=== PATIENT | male | born 1990 | race Two or more races ===

== ENCOUNTER 2019-08-03 02:42 | Emergency (ER) | payer SELFPAY ==
[~2019-08-03] VITALS: Ht 165.1 cm; Wt 63.5 kg
--- NOTE | 2019-08-03 03:00 | NUR ---
[facility] PT STATES HE COULDNT GET METH AND FOUND RITALIN AND CLONIDINE AND TOOK 80 PILLS OF EACH. DENIES SI. VSS.
--- NOTE | 2019-08-03 03:04 | NUR ---
Poison control called per Dr. Kennedy
[2019-08-03 03:19] LABS: BASOPHILS % (AUTO) 0.8 % (0.0-2.0); EOSINOPHILS % (AUTO) 0.8 % (0.0-6.0); HEMATOCRIT 39 % (39-51); LYMPHOCYTES # (AUTO) 2.1 /CMM (0.8-4.8); LYMPHOCYTES % (AUTO) 34.1 % (20.0-44.0); MEAN CORPUSCULAR HGB CONC 34 g/dl (31.0-36.0); MEAN CORPUSCULAR VOLUME 89 fL (80-96); MONOCYTES # (AUTO) 0.4 /CMM (0.1-1.30); NEUTROPHILS # (AUTO) 3.7 /CMM (1.8-8.9); NEUTROPHILS % (AUTO) 58.3 % (43.0-81.0); PLATELET COUNT (AUTO) 325 /CMM (150-450); RED BLOOD CELL COUNT(AUTO) 4.36 MIL/uL (4.5-6.0); WHITE BLOOD COUNT (AUTO) 6.3 K/uL (4.3-11.0)
[2019-08-03 03:35] LABS: ALANINE AMINOTRANSFERASE 53 U/L (12-78); ALBUMIN 4.5 g/dL (3.4-5.0); ALCOHOL, BLOOD < 3 mg/dL (0-0); ALKALINE PHOSPHATASE 66 U/L (46-116); ASPARTATE AMINOTRANSFERASE 32 U/L (15-37); BILIRUBIN,DIRECT 0.2 mg/dL (0.0-0.2); BILIRUBIN,TOTAL 0.7 mg/dL (0.2-1.0); CALCIUM, SERUM 9.7 mg/dL (8.5-10.1); CARBON DIOXIDE 27 mmol/L (21-32); CHLORIDE 104 mmol/L (98-107); CREATININE 1.1 mg/dL (0.6-1.3); GLUCOSE 82 mg/dL (74-106); POTASSIUM 3.7 mmol/L (3.5-5.1); SODIUM SERUM 142 mmol/L (136-145); TOTAL PROTEIN, SERUM 7.8 g/dL (6.4-8.2); UREA NITROGEN, BLOOD 17 mg/dL (7-18)
[2019-08-03 03:39] LABS: ACETAMINOPHEN 0 ug/ml (10-30); SALICYLATE 0.4 mg/dL (2.8-20.0)
[2019-08-03 05:02] LABS: APPEARANCE,URINE Slightly Cloudy (CLEAR); BILIRUBIN,URINE MODERATE (NEGATIVE); BLOOD, URINE Large Ery/uL (NEGATIVE); COLOR,URINE Dark (YELLOW); KETONES,URINE 40 (NEGATIVE); LEUKOCYTE ESTERASE ,URINE Negative (NEGATIVE); NITRITE, URINE Negative (NEGATIVE); PROTEIN,URINE 100 mg/dl (NEGATIVE); UGLUCOSE Negative (NEGATIVE)
--- NOTE | 2019-08-03 05:18 | NUR ---
pt is ambulatory in the [address] w/ steady gaits. reporting feeling good and willing to leave.
[2019-08-03 05:22] LABS: BACTERIA,URINE None seen /HPF (None Seen); RBC,URINE 51-80 /HPF (0-2); SQUAMOUS EPITHELIAL CELL,UR Few /HPF (None Seen); WBC,URINE 0-2 /HPF (0-3)
--- NOTE | 2019-08-03 05:50 | NUR ---
pt refused checking vs. risk vs. benefits explained to the pt
[2019-08-03] MEDS ORDERED: LORAZEPAM INJ 2 MG/ML VIAL IV ONE (09:00)
[2019-08-03] MEDS ORDERED: LORAZEPAM INJ 2 MG/ML VIAL ONE (09:27)
--- NOTE | 2019-08-03 09:33 | NUR ---
patient in bed, watching TV, sitter at bedside for constant monitoring. Will continue to monitor accordingly.
--- NOTE | 2019-08-03 10:12 | NUR ---
Spoke to Jose Elias from poison control and update given and made aware
--- NOTE | 2019-08-03 11:40 | NUR ---
patient in bed, resting, in no distress, sitter at bedside for constant monitoring.
--- NOTE | 2019-08-03 13:53 | NUR ---
patient is in bed, asleep, in no distress.
--- NOTE | 2019-08-03 15:00 | NUR ---
called poison control and spoke to Don and update given, and will close the case. made aware.
[2019-08-03 15:31] VITALS: BP 122/71
--- NOTE | 2019-08-03 15:31 | NUR ---
Patient given written and verbal discharge instructions. Patient verbalizes understanding of instructions. Patient is ambulatory with steady gait. Refuses offer of retirement placement. Patient given list of available shelters in surrounding area. provided, food, and tap card.
== END 2019-08-03 15:31 | disposition home or self-care (01) ==
LOC: ER 02:42
DX: T43.631A Poisoning by methylphenidate, accidental (unintentional), initial encounter (principal); Y92.89 Other specified places as the place of occurrence of the external cause
CPT/HCPCS: 36415; 80048; 80076; 80305; 80307; 80329; 81001; 85025; 96374; 99283; G0480; J2060; 81000-TC